=== PATIENT | female | born 1965 | race Caucasian/White ===

== ENCOUNTER → 2017-12-04 | Outpatient (CLI) | payer OTHER ==
[~2017-12-04] MED LIST: CATAPRES 0.1MG0.1 MG PO; CEFTIN500 MG PO; CIPRO 500MG TA500 MG PO; EFFEXOR 3737.5 MG/TA PO; FLEXERIL 1010 MG/TAB PO; LYRICA 25MG CAP25 MG PO; PROAIR HFA0.09 MG/AC IH; REQUIP0.25 MG PO; TENORMIN100 MG PO
== END ==
LOC: COL.PUL 12:56
DX: Z02.71 Encounter for disability determination (principal)

== ENCOUNTER → 2018-06-24 | Outpatient (REF) ==
[2018-06-24 17:04] LABS: THYROID STIMULATING HORMONE 2.21 uIU/mL (0.465-4.680)
== END ==
LOC: ZLAB.WCH 16:01
PROVIDERS: Physician Assistant
DX: Z01.89 Encounter for other specified special examinations (principal)

== ENCOUNTER → 2019-10-30 | Outpatient (CLI) | payer BC | LOC: COL.RAD 07:14 | DX: K52.9 Noninfective gastroenteritis and colitis, unspecified (principal); R11.10 Vomiting, unspecified | CPT/HCPCS: A9541 ==

== ENCOUNTER 2020-10-28 16:51 | Inpatient (IN) | payer BC ==
[~2020-10-28] VITALS: Ht 167.6 cm; Wt 89.3 kg
[2020-10-28 17:55] LABS: COLLECTION METHOD CLEAN CATCH
[2020-10-28 18:04] LABS: BASO # 0.1 (0.0-0.2); EOS # 0.1 (0.0-0.7); EOS % 1.2 % (0-4.0); GRAN # 8.1 (1.4-6.5); GRAN % 82.4 % (42.2-75.2); HEMOGLOBIN 14.2 g/dl (12.5-16.0); LYMPH # 0.8 (1.2-3.4); LYMPH % 7.7 % (20.0-51.0); MEAN CELL VOLUME 124 fl (80.0-100.0); MEAN CORPUSCULAR HEMOGLOBIN 44 pg (27.0-31.0); MEAN CORPUSCULAR HGB CONC 36 g/dl (33.0-37.0); MEAN PLATELET VOLUME 9.8 fl (7.4-10.4); MONO # 0.7 (0.1-0.6); MONO % 7.4 % (1.7-9.3); PLATELET COUNT 250 K/mm3 (130-400); RED BLOOD COUNT 3.23 M/mm3 (4.10-5.30); REDCELL DISTRIBUTION WIDTH-CV 12.6 % (11.5-14.5)
[2020-10-28 18:10] LABS: ARTERIAL BLD GAS O2 SATURATION 93.2 % (92-100); ARTERIAL BLOOD GAS BASE EXCESS 2.2 (-2-2); ARTERIAL BLOOD GAS HCO3 26.7 meq/L (22-26); ARTERIAL BLOOD GAS PCO2 41.3 mmHg (35-45); ARTERIAL BLOOD GAS PO2 62.1 mmHg (80-100); ARTERIAL BLOOD GAS pH 7.43 (7.35-7.45)
[2020-10-28 18:14] LABS: BUDDING YEAST Present /hpf; MUCOUS Present /lpf; PH 5 (5-8); SQUAMOUS EPITHELIAL 20-50 /hpf; URINE APPEARANCE Cloudy; URINE BACTERIA Moderate /hpf; URINE BILIRUBIN Negative (NEGATIVE); URINE BLOOD 1+ (NEGATIVE); URINE COLOR Amber; URINE GLUCOSE Negative (NEGATIVE); URINE KETONE Negative (NEGATIVE); URINE LEUKOCYTE ESTERASE 3+ (NEGATIVE); URINE NITRATE Negative (NEGATIVE); URINE PROTEIN(semi-quant) 1+ (NEGATIVE); URINE UROBILINOGEN >=4.0 mg/dL (NEGATIVE)
[2020-10-28 18:16] LABS: ALANINE AMINOTRANSFERASE 17 U/L (4-34); ALBUMIN 3.8 gm/dL (3.5-5.0); ALKALINE PHOSPHATASE 173 U/L (50-136); ANION GAP 11 mmol/L (7-16); AST,SGOT 105 U/L (15-37); BILIRUBIN,TOTAL 1.5 mg/dL (0.0-1.0); C-REACTIVE PROTEIN 2.6 mg/dL (0.0-0.9); CALCIUM 8.8 mg/dL (8.4-10.2); CARBON DIOXIDE 29 mmol/L (22-30); CHLORIDE 95 mmol/L (98-107); CREATININE, serum 0.56 (0.52-1.25); GLUCOSE 135 mg/dL (74-106); LIPASE 26 U/L (23-300); SODIUM 134 mmol/L (137-145); TOTAL PROTEIN 6.8 gm/dL (6.4-8.2); TRICYCLIC ANTIDEPRESS URINE NEGATIVE
[2020-10-28 18:22] LABS: BLOOD UREA NITROGEN < 2 mg/dL (7-17)
[2020-10-28 18:23] LABS: ALCOHOL(ethanol),MEDICAL < 10 mg/dL; POTASSIUM 2.9 mmol/L (3.4-5.0)
[2020-10-28] MEDS ORDERED: PRINIVIL20 MG PO (18:51)
[2020-10-28] MEDS ORDERED: NEURONTIN600 MG/TAB PO (18:52)
[2020-10-28 20:03] LABS: COLLECTION METHOD CATHETER
[2020-10-28 20:17] LABS: MUCOUS Present /lpf; PH 7 (5-8); SQUAMOUS EPITHELIAL 0-2 /hpf; URINE APPEARANCE Hazy; URINE BACTERIA None Seen /hpf; URINE BILIRUBIN Negative (NEGATIVE); URINE BLOOD Negative (NEGATIVE); URINE COLOR Yellow; URINE GLUCOSE Negative (NEGATIVE); URINE KETONE Negative (NEGATIVE); URINE LEUKOCYTE ESTERASE 2+ (NEGATIVE); URINE NITRATE Negative (NEGATIVE); URINE PROTEIN(semi-quant) Negative (NEGATIVE); URINE RBC 0-2 /hpf; URINE UROBILINOGEN >=4.0 mg/dL (NEGATIVE)
[2020-10-28 21:11] LABS: RETIC # 0.07 M/mm3 (0.02-0.16); RETIC % 2.1 % (0.5-3.52)
[2020-10-28 22:04] LABS: MAGNESIUM 1.2 mg/dL (1.6-2.3); PHOSPHOROUS 3.5 mg/dL (2.5-4.5)
[2020-10-29] VITALS (8 sets, daily range): BP systolic 98–125; BP diastolic 63–81; PULSE 83–92; TEMP 97.8–98.9
[2020-10-29] MEDS ORDERED: NEURONTIN300 MG/CAP PO (00:35)
[2020-10-29] MEDS ORDERED: PRINIVIL40 MG PO (00:35)
[2020-10-29] MEDS ORDERED: PROAIR HFA0.09 MG/AC IH (00:35)
[2020-10-29] MEDS ORDERED: TENORMIN100 MG PO (00:35)
[2020-10-29] MEDS ORDERED: PRILOSEC 20MG20 MG PO (00:36)
--- NOTE | 2020-10-29 02:15 | NUR ---
PT UP TO MEDICAL FLOOR AT APPROXIMATELY 0014 BY ED STAFF VIA BED, VSS, 02 2L NC, SATURAING 93 PERCENT, PT A/OX4, FLUIDS INFUSING VIA PERIPHERAL LINE L FA, POTASSIUM INFUSING, MAGENSIUM INFUSING WELL. PT REPORTS PAIN 7/10 TO ABDOMINAL REGION, THIS NURSE WILL CONDUCT ASSESMENT. CALL LIGHT WITHN REACH.
--- NOTE | 2020-10-29 05:56 | NUR ---
PT A/OX4, O2 2L NC, PT DESATS ON AMBULATION TO 85-88 PERCENT, POTASSIUM 7/7 BAGS INFUSED, ANTIBOTICS INFUSING VIA PERIPHERAL LINE, PROMETHAZINE IV ADMINISTERED TO LEFT FA INT, PT REPORTS FEELING " A LITTLE BETTER" PT REPORTS PAIN TO ABDOMEN 7/10 PAIN SCALE, ABDOMEN IS DISTENDED AND MORE PAINFUL IN THE UPPER QUADRANTS, PT HAS HAD TWO EPISODES OF EMESIS ABOUT 200ML EACH WITH A TOTAL OF 400ML UPON ADMISSION, YELLOW EMESIS NOTED, AFTER PROMETHAZINE ADMINSTRATION PT HAS HAD NO CONTINUED EMESIS EPISODES. PT EXPRESSES NO ADDITIONAL NEEDS AT THIS TIME. CALL LIGHT WITHIN REACH.
--- NOTE | 2020-10-29 07:00 | NUR ---
Report received from JACINTO Casillas. PT in bed sleeping, will continue to monitor.
[2020-10-29 08:44] LABS: BASO # 0.1 (0.0-0.2); BASO % 0.9 % (0.0-2.0); EOS # 0.1 (0.0-0.7); EOS % 1.5 % (0-4.0); GRAN # 6.9 (1.4-6.5); GRAN % 80.6 % (42.2-75.2); LYMPH # 0.9 (1.2-3.4); LYMPH % 10.7 % (20.0-51.0); MEAN CELL VOLUME 127 fl (80.0-100.0); MEAN CORPUSCULAR HGB CONC 34 g/dl (33.0-37.0); MEAN PLATELET VOLUME 9.7 fl (7.4-10.4); MONO # 0.5 (0.1-0.6); MONO % 6.1 % (1.7-9.3); PLATELET COUNT 161 K/mm3 (130-400); RED BLOOD COUNT 2.71 M/mm3 (4.10-5.30); REDCELL DISTRIBUTION WIDTH-CV 12.9 % (11.5-14.5)
[2020-10-29 08:54] LABS: HEMATOCRIT 34.4 % (37.0-47.0); HEMOGLOBIN 11.8 g/dl (12.5-16.0); MEAN CORPUSCULAR HEMOGLOBIN 44 pg (27.0-31.0)
--- NOTE | 2020-10-29 09:29 | NUR ---
Assessment charted. Pt c/o pain at 8 or 9/10 to RUQ, PRN pain and nausea meds given per request. PT resting in bed, US of ABD completed, Echo completed. PT on 02 at 2L NC. RUQ is EXTREMELY tender to touch. Alert and oriented. INT to LH and IV to RFA. Will continue to monitor.
[2020-10-29 09:38] LABS: ANION GAP 5 mmol/L (7-16); CALCIUM 7.9 mg/dL (8.4-10.2); CARBON DIOXIDE 26 mmol/L (22-30); CHLORIDE 100 mmol/L (98-107); CREATININE, serum 0.54 (0.52-1.25); GLUCOSE 104 mg/dL (74-106); POTASSIUM 4.1 mmol/L (3.4-5.0); SODIUM 131 mmol/L (137-145)
[2020-10-29 09:43] LABS: BLOOD UREA NITROGEN < 2 mg/dL (7-17)
--- NOTE | 2020-10-29 10:33 | NUR ---
SW met with the patient to discuss discharge plan. The patient lives in [place] with her , Tima (ph#[phone]). She reports independence with ADLs and does not have any DME. The patient's PCP is Dr. Jenae Belle and she receives her medications from [facility]. She reports no difficulties obtaining her meds. The patient does not have a DPOA-HC, but she was interested in obtaining a form. YOVANA provided. The patient plans to return home with her upon discharge. She is currently on 2 liters of oxygen. SW to continue to monitor. *Discharge plan: home with *
[2020-10-29 11:53] LABS: BILIRUBIN,TOTAL 1.1 mg/dL (0.0-1.0)
[2020-10-29 14:42] LABS: ANION GAP 5 mmol/L (7-16); CALCIUM 7.6 mg/dL (8.4-10.2); CARBON DIOXIDE 25 mmol/L (22-30); CHLORIDE 102 mmol/L (98-107); CREATININE, serum 0.55 (0.52-1.25); GLUCOSE 108 mg/dL (74-106); SODIUM 133 mmol/L (137-145)
[2020-10-29 14:52] LABS: BLOOD UREA NITROGEN < 2 mg/dL (7-17)
--- NOTE | 2020-10-29 15:38 | NUR ---
Called OR charge and they relayed Dr. Gaspar may not want to do any surgery on patient until further invesitigation for her parasthesia's and numbness/tingling is completed. Relayed to Dr. Streeter and she said she will look into it.
[2020-10-29 16:04] LABS: OSMOLALITY-SERUM 283 Osm/kg (275-300)
--- NOTE | 2020-10-29 19:11 | NUR ---
Called Dr. Gaspar and relayed update from Dr. Hernandez regarding plan of care, he states he will still keep pt NPO p midngiht and may take out gallbladder in am. Pt given PRN nausea and pain meds over shift per request. Does needs help getting up and is unsteady on feet, states numbness is getting worse over shift. Bedside shift report given to nightshift nurse who will resume care.
[2020-10-30] VITALS (12 sets, daily range): BP systolic 95–132; BP diastolic 52–85; PULSE 78–96; TEMP 97.6–98.7
--- NOTE | 2020-10-30 01:18 | NUR ---
PT ALERT AND ORIENTED DURING ASSESSMENT. COMPLAINED OF PAIN 10/26, BP LOW. PT AGREED TO SEE IF REST WOULD HELP PAIN AT THIS TIME. WILL CONTINUE TO MONITOR. PT COMPLAINS OF PAIN AND PARESTHESIA IN LEGS MOVING FROM TOES TO GROIN. PT HAS UNSTEADY GAIT, FALL RISK PRECAUTIONS OBSERVED AND WALKER UTILIZED WITH AMBULATION TO BATHROOM. PT HAD EXPIRATORY WHEEZES NOTED IN LEFT LUNG ALL LOBES AND RIGHT LOWER LOBE. PT CALL LIGHT WITHIN REACH. NO FURTHER NEEDS EXPRESSED AT THIS TIME.
--- NOTE | 2020-10-30 07:41 | NUR ---
PT ALERT AND ORIENTED THIS SHIFT. PT HAD LOW BP DURING 1999 VS, HELD PRN IV PAIN MEDICATION UNTIL BP STABILIZED. PAIN RATED 8-9/10 IN LEGS, ABDOMEN AND BACK. MANAGED WITH PRN PAIN MEDICATION PER ORDERS. PT STABLE ON ROOM AIR OVER NIGHT. PT ABLE TO AMBULATE TO BATHROOM WITH FALL PRECAUTIONS OBSERVED. PT FREE FROM INJURY THIS SHIFT.
[2020-10-30 08:06] LABS: BASO # 0.1 (0.0-0.2); BASO % 1.1 % (0.0-2.0); EOS # 0.2 (0.0-0.7); EOS % 3.1 % (0-4.0); HEMOGLOBIN 11.5 g/dl (12.5-16.0); LYMPH # 0.9 (1.2-3.4); MEAN CORPUSCULAR HEMOGLOBIN 45 pg (27.0-31.0); MEAN CORPUSCULAR HGB CONC 34 g/dl (33.0-37.0); MEAN PLATELET VOLUME 10.1 fl (7.4-10.4); MONO # 0.4 (0.1-0.6); MONO % 6.4 % (1.7-9.3); PLATELET COUNT 139 K/mm3 (130-400); RED BLOOD COUNT 2.57 M/mm3 (4.10-5.30); REDCELL DISTRIBUTION WIDTH-CV 13.1 % (11.5-14.5)
[2020-10-30 08:10] LABS: HEMATOCRIT 34.1 % (37.0-47.0); MEAN CELL VOLUME 133 fl (80.0-100.0)
[2020-10-30 08:19] LABS: CALCIUM 7.3 mg/dL (8.4-10.2); CREATININE, serum 0.53 (0.52-1.25); POTASSIUM 3.8 mmol/L (3.4-5.0)
--- NOTE | 2020-10-30 09:48 | NUR ---
Assessment completed, alert/oriented, vital signs stable, patient reports pain / myalgias worsening, she reports BLE pain and weakness/numbness is increasing, RLE appears to be more weak than left, stated she has some tingling to her face and breasts as well, she is recieving IV diaudid for pain and report this is helping minimally and does not last long each time, she has been getting up with stand by assist/ also worked with PT and done fairly well, activity does tend to increase her discomfort however, heart RRR/ distal pulses are palpable, lungs are CTA/ denies resp difficutly and is on room air, abdomen is tender/ plans for possible Cholecysectomy today and in the room now discussing plan of care with the patient, she is NPO, i will further discuss plan of care with the hospitalist , patient denies other needs at this time
[2020-10-30 12:44] LABS: INR 1.2 (0.8-3.0); PROTHROMBIN TIME 13.5 SECONDS (9.7-12.8)
--- NOTE | 2020-10-30 12:45 | NUR ---
Patient is going down for Cholecysectomy at this time by , consent signed
[2020-10-30 12:54] LABS: ALBUMIN 2.9 gm/dL (3.5-5.0); BILIRUBIN,TOTAL 0.5 mg/dL (0.0-1.0); CALCIUM 7.5 mg/dL (8.4-10.2); CREATININE, serum 0.53 (0.52-1.25); POTASSIUM 3.9 mmol/L (3.4-5.0); TOTAL PROTEIN 5.4 gm/dL (6.4-8.2)
--- NOTE | 2020-10-30 14:23 | NUR ---
SW met with nurse to inquire about patient planning to DC to her home. Nurse provided that patient would not be discharging on this day. SW will continue to follow.
[2020-10-30 15:11] LABS: PERITONEAL -POLYMORPHONUCLEAR 7.9 % (0-25); PERITONEAL FLUID RBC 0 /mm3 (0-0)
--- NOTE | 2020-10-30 15:30 | NUR ---
Patient arrived back to [place] [id number] from PACU at this time, she is drowsy but arouses to name, vital signs stable, denies pain, 5x lap sites look good/ no drainage noted and FEI with surgical glue for closure, at bedside and I will cotninue to monitor
--- NOTE | 2020-10-30 18:00 | NUR ---
Patient doing well post-operative, vital signs remain stable, she is reporting some pain now that medications are wearing off/ Morphine IV dose given and will reassess, incision sites C/D/I, she is tolerating PO liquids, will continue to monitor
--- NOTE | 2020-10-30 19:19 | NUR ---
DURING RE-INTRODUCTION. PT REPORTED CHEST PAIN AND SLIGHT DIFFICULTY BREATHING , SPO2 CHECKED AT 97%. PT DENIED DIZZINESS. PT THEN ALTERED PAIN LOCATION TO UPPER ABDOMEN. PT ABLE TO EAT AND REPOSITION SELF AT THIS TIME. NO FURTHER INTERVENTION AT THIS TIME.
--- NOTE | 2020-10-30 23:36 | NUR ---
PT ALERT AND ORIENTED. PT LAP SITES 5 WELL APPROXIMATED, CLOSED WITH GLUE. LAP SITES HAVE ERYTHEMA SURROUNDING EDGES, NO BLEEDING NOTED. PT ABDOMEN TENDER, DISTENDED. HYPOACTIVE BOWEL SOUNDS. PT ENCOURAGE TO MOVE. PT STATES PAIN IS 6/10 WHEN SITTING, INCREASES 10/10 WITH MOVEMENT. PT PROVIDED ICE PACK, PRN IV PAIN MEDICATIONS NOT GIVEN DUE TO LOW BP. ENCOURAGED TO WALK, WILL RECHECK BP AND GIVE MEDICATIONS IF BP STABLE. PT HAS SOA WITH EXERTION, ABLE TO AMBULATE TO BATHROOM, FALL PRECAUTIONS OBSERVED. PT HAS BURN FROM HEATING PAD USED AT HOME, APPEARANCE BROWN SKIN THAT SPIDERS THROUGHOUT POSTERIOR THIGH AND UP INTO GROIN PER PT. PT STATES "I FELL ASLEEP WITH MY HEAT PAD ON AND IT DIDN'T TURN OFF". BURN INJURY NON-TENDER. PT NEUROCHECK WITHIN DEFINED LIMITS, NO SIGNIFICANT CHANGE NOTED. PT CALL LIGHT WITHIN REACH.
[2020-10-31] VITALS (7 sets, daily range): BP systolic 104–219; BP diastolic 53–90; PULSE 79–100; TEMP 97.6–98.5
--- NOTE | 2020-10-31 06:31 | NUR ---
PT EXPRESSED SEVERE PAIN THIS SHIFT. PT REPORTED 6-7/10 WHEN LYING, 10/10 UPON EXERTION. ICE PACK PROVIDED AND IV PAIN MEDICATION ADMINISTERED PER ORDERS. PT STATED PARTIAL RELIEF. PT ABLE TO AMBULATE TO BATHROOM, FALL PRECAUTIONS OBSERVED. PT FREE FROM INJURY THIS SHIFT.
[2020-10-31 07:46] LABS: BASO % 0.2 % (0.0-2.0); EOS % 0.1 % (0-4.0); GRAN # 12.4 (1.4-6.5); GRAN % 89.3 % (42.2-75.2); HEMATOCRIT 40.9 % (37.0-47.0); LYMPH # 0.6 (1.2-3.4); LYMPH % 4.4 % (20.0-51.0); MEAN CORPUSCULAR HGB CONC 34 g/dl (33.0-37.0); MONO # 0.8 (0.1-0.6); MONO % 5.6 % (1.7-9.3); PLATELET COUNT 197 K/mm3 (130-400); REDCELL DISTRIBUTION WIDTH-CV 12.7 % (11.5-14.5)
[2020-10-31 07:52] LABS: ALBUMIN 2.6 gm/dL (3.5-5.0); BILIRUBIN,TOTAL 0.5 mg/dL (0.0-1.0); CALCIUM 7.4 mg/dL (8.4-10.2); CREATININE, serum 0.52 (0.52-1.25); POTASSIUM 4.4 mmol/L (3.4-5.0); TOTAL PROTEIN 5.1 gm/dL (6.4-8.2)
[2020-10-31 07:53] LABS: HEMOGLOBIN 13.9 g/dl (12.5-16.0); MEAN CELL VOLUME 128 fl (80.0-100.0); MEAN CORPUSCULAR HEMOGLOBIN 43 pg (27.0-31.0)
--- NOTE | 2020-10-31 09:00 | NUR ---
Assessment completed, vital signs stable, reporting continue significant abd pain, I have explained 24hr post robotic surgery can be very uncomfortable, I have encouraged ambulation and position changes frequently, abdomen is round but soft, BS+ throughout, she denies passing flatus, lap incision sites look good/ no drainange noted, using PRN pain meds as well, she is tolerating some PO intake without increased pain or nausea, she also reports pain/tinlging to BLE is unchaged from yesterday, no better and no worse, she is still able to ambulate with asssitance and demonstrates more weakness to her RLE, patient does have purple/discoloration to her right posterior upper leg from heating pad use at home, no signs of impired circulation and pedal pulses are palpable, heart RRR, lungs CTA/ no resp.difficulty, o2 sats are WNL on room air, plans for further Neuro workup 11/01/20, she denies needs, will cotninue to monitor
--- NOTE | 2020-10-31 22:21 | NUR ---
PT IN BED. SHIFT ASSESSMENT COMPLETED. PT COMPLAINING OF SEVERE BACK PAIN, MEDICATION ADMINISTERED PER ORDERS. PT STATES SHE HAS PAIN IN HER ABDOMEN UPON SOFT PALPATION. PT HAS NUMBNESS/TINGLING OVER WHOLE BODY, STATES SHE CANT FEEL TOUCH IN CERTAIN AREAS OF HER LEGS AND ALSO CANT MOVE HER UPPER LIP. CALL LIGHT WITHIN REACH. WILL CONTINUE TO MONITOR.
[2020-11-01] VITALS (8 sets, daily range): BP systolic 108–150; BP diastolic 58–92; PULSE 60–118; TEMP 97.6–98.4
--- NOTE | 2020-11-01 04:24 | NUR ---
PT COMPLAINS OF INTENSE PAIN, NUMBNESS, AND TINGLING THROUGHOUT HER ENTIRE BODY. APPEARS TO NOT GET MUCH REST THROUGHOUT THE NIGHT. PAIN MEDICATIONS GIVEN PRN PER ORDERS. PT GOT NAUSEOUS ONCE WITH EMESIS, ANTIEMETICS GIVEN PER ORDERS. NAUSEA HAS RESOLVED. WILL CONTINUE TO MONITOR.
--- NOTE | 2020-11-01 07:00 | NUR ---
Report received from JACINTO Varma. pT in bed resting with eyes closed, will continue to monitor
[2020-11-01 07:05] LABS: BASO # 0.1 (0.0-0.2); BASO % 0.7 % (0.0-2.0); EOS # 0.1 (0.0-0.7); EOS % 0.6 % (0-4.0); GRAN # 16.8 (1.4-6.5); GRAN % 85.9 % (42.2-75.2); HEMATOCRIT 44.5 % (37.0-47.0); HEMOGLOBIN 15.3 g/dl (12.5-16.0); LYMPH # 1.3 (1.2-3.4); LYMPH % 6.4 % (20.0-51.0); MEAN CELL VOLUME 126 fl (80.0-100.0); MEAN CORPUSCULAR HEMOGLOBIN 44 pg (27.0-31.0); MEAN CORPUSCULAR HGB CONC 34 g/dl (33.0-37.0); MEAN PLATELET VOLUME 10.1 fl (7.4-10.4); MONO # 1.2 (0.1-0.6); MONO % 5.9 % (1.7-9.3); PLATELET COUNT 237 K/mm3 (130-400); RED BLOOD COUNT 3.52 M/mm3 (4.10-5.30)
[2020-11-01 07:19] LABS: CALCIUM 7.2 mg/dL (8.4-10.2); CREATININE, serum 0.85 (0.52-1.25); POTASSIUM 4.2 mmol/L (3.4-5.0)
[2020-11-01 07:24] LABS: INR 1.1 (0.8-3.0); PROTHROMBIN TIME 12.3 SECONDS (9.7-12.8)
--- NOTE | 2020-11-01 08:30 | NUR ---
Pt assisted to floor after trying to get up with JACOB Mcleod, unable to bear weight on legs and assisted to the floor by JACOB, able to get back to bed with assistance of 4. Pain in ABD is 12/10 and legs are numb to patient. PRN pain meds given per request. Pt has worsening numbness, BLE cannot feel touch over thighs but feels from knees down. Unable to lift RLE on bed more than an inch and falls back, and LLE can lift but not for long. BUE not weak or numb.. Pt not wanting to eat much, called MRI and they are "full" so will not get to MRIs until this afternoon .Called Hospitalist regarding pt status today, worsening weakness, MRI and LP schedule, and assisted fall. Will continue to monitor.
[2020-11-01 09:41] LABS: ALBUMIN 2.4 gm/dL (3.5-5.0); BILIRUBIN,TOTAL 0.5 mg/dL (0.0-1.0)
--- NOTE | 2020-11-01 11:32 | NUR ---
PT worked with the patient this weekend and recommended that the patient may need post-acute rehab and would be a good candidate for IPR. SW met with the patient to review d/c plan and to discuss PT's recommendation. The patient reports that she could be better. She states that she had a fall this morning and would be interested in IPR upon discharge. YOVANA consulted IPR Director, Kimberli. Awaiting screen.
--- NOTE | 2020-11-01 14:45 | NUR ---
Pt bladder scanned, revealed greater than 550 mls. Placed 16french gonzalez catheter. Pt did tolerate well. Down for MRI now with staff bringing pt in bed. Will give report to JACINTO Wren who will resume care.
[2020-11-01 14:50] LABS: COLLECTION METHOD CATHETER
[2020-11-01 15:13] LABS: BUDDING YEAST Present /hpf; MUCOUS Present /lpf; PH 5 (5-8); SQUAMOUS EPITHELIAL 0-2 /hpf; URINE APPEARANCE Hazy; URINE BACTERIA Rare /hpf; URINE BILIRUBIN Negative (NEGATIVE); URINE BLOOD Negative (NEGATIVE); URINE COLOR Yellow; URINE GLUCOSE Negative (NEGATIVE); URINE KETONE Negative (NEGATIVE); URINE LEUKOCYTE ESTERASE 2+ (NEGATIVE); URINE NITRATE Negative (NEGATIVE); URINE PROTEIN(semi-quant) Negative (NEGATIVE); URINE RBC >50 /hpf; URINE UROBILINOGEN Negative (NEGATIVE)
--- NOTE | 2020-11-01 16:10 | NUR ---
out of room for MRI, shift report received from JACINTO Mcnamara
--- NOTE | 2020-11-01 16:35 | NUR ---
patient in bed in radiology department and ready for lumbar puncture, states because of pain she cannot lay on her abdomen, medicated with dilaudid 0.5mg slow IV, resp quiet and easy
--- NOTE | 2020-11-01 17:15 | NUR ---
returned back to room from radiology, all tests comopleted, she is lying flat in bed at this time, is alert and oriented, skin warm and dry, color good, heart rate is strong and regular, lungs are CTA, few bowel sounds hear but abdomen is round but soft, incision to abd CD&I, gonzalez cath patent draining yellow cloudy urine, c/o back pain after MRI and LP completed, encouraged to just lie flat and see if it does not get better and if not will then medicate, bunker worker are equal and weak, lower extremities are within normal limits, will provide water per her request, takes sips of water with meds and tolerates well
[2020-11-01 18:34] LABS: CSF APPEARANCE CLEAR; CSF COLOR COLORLESS
[2020-11-01 18:35] LABS: CSF RBC 8 /mm3 (0-0)
[2020-11-01 18:43] LABS: CSF MONONUCLEAR 100 % (70-100); CSF POLYMORPHONUCLEAR 0 % (0-6)
--- NOTE | 2020-11-01 19:11 | NUR ---
bedside shift report given to JACINTO Rios
[2020-11-02] VITALS (11 sets, daily range): BP systolic 109–145; BP diastolic 74–97; PULSE 102–116; TEMP 97.6–98.6
[2020-11-02 06:22] LABS: BASO # 0.1 (0.0-0.2); BASO % 0.8 % (0.0-2.0); EOS # 0.1 (0.0-0.7); EOS % 0.8 % (0-4.0); GRAN # 14.1 (1.4-6.5); GRAN % 84.5 % (42.2-75.2); HEMATOCRIT 43.5 % (37.0-47.0); HEMOGLOBIN 14.9 g/dl (12.5-16.0); LYMPH # 1.2 (1.2-3.4); LYMPH % 7.4 % (20.0-51.0); MEAN CELL VOLUME 125 fl (80.0-100.0); MEAN CORPUSCULAR HEMOGLOBIN 43 pg (27.0-31.0); MEAN CORPUSCULAR HGB CONC 34 g/dl (33.0-37.0); MEAN PLATELET VOLUME 9.7 fl (7.4-10.4); PLATELET COUNT 243 K/mm3 (130-400); RED BLOOD COUNT 3.47 M/mm3 (4.10-5.30)
[2020-11-02 06:40] LABS: ALBUMIN 2.3 gm/dL (3.5-5.0); BILIRUBIN,TOTAL 0.5 mg/dL (0.0-1.0); CALCIUM 7.3 mg/dL (8.4-10.2); CREATININE, serum 0.75 (0.52-1.25); POTASSIUM 4.3 mmol/L (3.4-5.0); TOTAL PROTEIN 4.6 gm/dL (6.4-8.2)
--- NOTE | 2020-11-02 09:58 | NUR ---
Pt assessment complete. Pt sitting up in bed upon entry, she is A/O x4. Her breathing is even and unlabored on 1L O2 via NC. Pt requested to have O2 removed O2 sat at 99%, but requested to have it replaced before exiting for comfort. Reports low back pain 9/10 as well as bilateral thighs. Reports N/T to bilateral feet, hands and now lips. No N/V. Did have a loose stool this am, so refused stool softners. Merrick ALVARES. Discussed PICC line placement. No further needs, call light within reach.
--- NOTE | 2020-11-02 10:53 | NUR ---
The patient is to start IVIG and will be on it for 5 days. Kimberli, IPR Director, reports that she will continue to follow the patient. YOVANA contacted and updated the patient's , Tima. Tima is in agreement to IPR. SW to continue to follow.
--- NOTE | 2020-11-02 12:25 | NUR ---
Pt tolerating IVIG without issues. Rate increased.
--- NOTE | 2020-11-02 19:00 | NUR ---
Pt tolerated IVIG without issues. Reports increase in pain and N/T. States she feels like her hands and feet are on fire and swelling increased. Some edema to R knee and RLE. Dr. Ray notified, changes in meds made. POC discussed with patient. Call light within reach.
[2020-11-03] VITALS (13 sets, daily range): BP systolic 116–146; BP diastolic 76–100; PULSE 98–112; TEMP 97.4–98.6
--- NOTE | 2020-11-03 06:04 | NUR ---
PT CONTINUES TO REPORT AN INCREASE IN PAIN, PT'S MOBILITY HAS BECOME MORE DIFFICULT TO AMBULATE OR CONDUCT ADL'S, PT CURRENTLY UNABLE TO GRASP PHONE, CALL LIGHT, CUPS, PT UNABLE TO POSITION LEGS PT REQUIRES HELP TO REPOSITION. PT DID HAVE ONE EPISODE OF SCANT EMESIS OVERNIGHT, MEDICATION ADMINISTERED ORDERED.MAK PATENT AND FREE OF DEBRIS. ANTIBIOTICS INFUSING TO DONTE PICC. PT WOULD LIKE TO ADVANCE DIET SHE STATES SHE FEELS SHE CAN TOLERATE BETTER, THIS NURSE WILL RELAY TO ONCOMING SHIFT. PT EXPRESSES NO ADDITIONAL NEEDS AT THIS TIME. CALL LIGHT WITHIN REACH.
[2020-11-03 06:58] LABS: BASO % 0.1 % (0.0-2.0); GRAN # 12.5 (1.4-6.5); HEMATOCRIT 39.2 % (37.0-47.0); HEMOGLOBIN 13.5 g/dl (12.5-16.0); LYMPH # 0.8 (1.2-3.4); LYMPH % 5.3 % (20.0-51.0); MEAN CELL VOLUME 125 fl (80.0-100.0); MEAN CORPUSCULAR HEMOGLOBIN 43 pg (27.0-31.0); MEAN CORPUSCULAR HGB CONC 34 g/dl (33.0-37.0); MEAN PLATELET VOLUME 9.9 fl (7.4-10.4); MONO # 0.7 (0.1-0.6); PLATELET COUNT 237 K/mm3 (130-400); RED BLOOD COUNT 3.14 M/mm3 (4.10-5.30); REDCELL DISTRIBUTION WIDTH-CV 12.9 % (11.5-14.5)
[2020-11-03 07:02] LABS: CALCIUM 7.9 mg/dL (8.4-10.2); CREATININE, serum 0.73 (0.52-1.25); POTASSIUM 4.6 mmol/L (3.4-5.0)
--- NOTE | 2020-11-03 08:17 | NUR ---
Pt assessment complete. Pt sitting up in bed upon entry, she is A/O x4. Her breathing is even and unlabored on 1L O2 via NC. Pt reports pain 10/10 this am, PRN pain medications administered. Pt feels N/T and weakness to hands and legs is about the same. Continues to drop things with unsteady hands. BLE elevated, discussed repositioning and PT with patient. Also discussed stool softner with patient, if no BM this am patient agreeable to take later today. No further needs at this time. Call light within reach.
--- NOTE | 2020-11-03 19:43 | NUR ---
Pt continued to have pain through the day, reports increase N/T and weakness. Was not able to feed herself lunch without dropping things. Breathing remains even and unlabored on RA. Sin catheter exchanged per JODI Gordon. 16FR placed good urine return. NO needs at this time. Call light within reach.
[2020-11-04] VITALS (8 sets, daily range): BP systolic 123–145; BP diastolic 72–96; PULSE 63–106; TEMP 97.7–98.5
--- NOTE | 2020-11-04 05:00 | NUR ---
PT HAS HAD LITTLE TO NO SLEEP THROUGH OUT, PT REPORTS PAIN INCREASING TO HER EXTREMEITIES AND FINGERS. PT HAS REPORTED PAIN 7-10 THROUGH OUT THE ENTIRE NIGHT. PT'S MOBILITY IS COMPRIMISED, PT REQUIRES ASSISTANCE TO REPOSITION Q2. ANTIBOTICS INFUSING TO PICC. ALL MEDICATIONS ADMINISTERED ORDERED. NURSE WILL CONTINUE TO MONITOR. CALL LIGHT WITHIN REACH.
[2020-11-04 06:21] LABS: HSV 2 DNA PCR QUAL NOT DETECTED
[2020-11-04 06:49] LABS: BASO % 0.1 % (0.0-2.0); GRAN # 8.7 (1.4-6.5); GRAN % 86.3 % (42.2-75.2); HEMOGLOBIN 12.1 g/dl (12.5-16.0); LYMPH # 0.8 (1.2-3.4); LYMPH % 7.4 % (20.0-51.0); MEAN CELL VOLUME 123 fl (80.0-100.0); MEAN CORPUSCULAR HEMOGLOBIN 42 pg (27.0-31.0); MEAN CORPUSCULAR HGB CONC 34 g/dl (33.0-37.0); MEAN PLATELET VOLUME 9.7 fl (7.4-10.4); MONO # 0.6 (0.1-0.6); PLATELET COUNT 183 K/mm3 (130-400); REDCELL DISTRIBUTION WIDTH-CV 12.7 % (11.5-14.5)
[2020-11-04 06:50] LABS: HEMATOCRIT 35.8 % (37.0-47.0)
[2020-11-04 07:05] LABS: CALCIUM 7.7 mg/dL (8.4-10.2); CREATININE, serum 0.73 (0.52-1.25); POTASSIUM 4.6 mmol/L (3.4-5.0)
--- NOTE | 2020-11-04 09:13 | NUR ---
Assessment completed, alert/oriented, vital signs stable, pain continues to be an issues and treating with schedule and PRN pain meds, patient reports mobility and movement have continued to decline, she is now having trouble using her hands and having increased weakness of her upper extremities, reports numbness/tingling sensations are now generalized over her entire body, at this point she is even unable to wiggle her toes, she is having no resp.difficulty and is on room air, lungs are CTA, she had a speech eval yesterday and was cleared for General diet, this morning she is having some difficulty with her pills, she does have hx of esophageal strictures and stated she was "due" to have a dilation before she was hospitalized/ I will discuss the plan of care with hospitalist, we are on day #3 of IVIG infusions, has been in to see patient and is recommending she be observed in ICU as her condtion has intensified/ he has spoke with hospitalist and I am awating further others, patient at bedside and she is now comfortable after some IV pain medication, I will continue to monitor closely
--- NOTE | 2020-11-04 09:25 | NUR ---
Patient has thrown her Lyrica up twice now this morning, she has gotten her other pills to stay down, I have notified hospitalist
--- NOTE | 2020-11-04 18:27 | NUR ---
I called report to JACINTO Christie at [facility]
--- NOTE | 2020-11-04 19:39 | NUR ---
Patient is lying in bed with in room Ros RN preparing her to be transfered to . Some bed shower, change of gown. Fluids running at 60 ml per hr. Sin in place. Patient reports pain all around the body, specially in the legs. She rates her pain at 11 in a 0-10 scale. PRN will be checked to be provided before going. No further needs at this time. Call light within reach.
--- NOTE | 2020-11-04 20:13 | NUR ---
Patient reports feeling of cold extremities in the upper and lower. Difficulty to move and coordinate hands. Constant pain and cramping legs. Waiting to be transfered to .
--- NOTE | 2020-11-04 21:34 | NUR ---
Patient reports pain of 10 in legs, Dilaudid provided.
--- NOTE | 2020-11-04 23:40 | NUR ---
Patient escorted out of hospital via EMS at this time. She requests pain medication prior to leaving and PRN Percocet is administered. Paperwork is provided. Bed bath was provided to patient prior to scrap picker.
== END 2020-11-04 22:45 | disposition short-term general hospital (02) | DRG 854 ==
LOC: COL.ER 16:51 → MEDICAL 19:48
PROVIDERS: Family Medicine; Internal Medicine Gastroenterology; Nurse Practitioner Family; Physician Assistant; Psychiatry & Neurology Neurology; Surgery; ADMIT Internal Medicine
PROC: 0FT44ZZ Resection of Gallbladder, Percutaneous Endoscopic Approach (ICD-10-PCS; 2020-10-30)
PROC: 8E0W4CZ Robotic Assisted Procedure of Trunk Region, Percutaneous Endoscopic Approach (ICD-10-PCS; 2020-10-30)
PROC: 02HV33Z Insertion of Infusion Device into Superior Vena Cava, Percutaneous Approach (ICD-10-PCS; principal; 2020-11-02)
DX: A41.9 Sepsis, unspecified organism (principal); E87.1 Hypo-osmolality and hyponatremia; K81.0 Acute cholecystitis; K82.1 Hydrops of gallbladder; G61.0 Guillain-Barre syndrome; I50.30 Unspecified diastolic (congestive) heart failure; E87.6 Hypokalemia; E87.8 Other disorders of electrolyte and fluid balance, not elsewhere classified; E83.42 Hypomagnesemia; R20.2 Paresthesia of skin; R33.9 Retention of urine, unspecified; N76.0 Acute vaginitis; I11.0 Hypertensive heart disease with heart failure; J45.909 Unspecified asthma, uncomplicated; G40.909 Epilepsy, unspecified, not intractable, without status epilepticus; G25.81 Restless legs syndrome
CPT/HCPCS: 99232-AI; 99233-AI; A4314; C1751; C1892; C9113; G0378; J0696; J1100; J1170; J1569; J1650; J1885; J2270; J2370; J2405; J2543; J2550; J2704; J2930; J3010; J3475; J3480; J7030; J7060; J7120; Q9967